=== PATIENT | male | born 1990 | race African-American/Black ===

== ENCOUNTER → 2019-01-18 | Outpatient (CLI) | payer BC ==
--- NOTE | 2019-01-18 14:03 | Diagnostic Imaging Report ---
PROCEDURE: MRI lumbar spine. TECHNIQUE: Multiplanar, multisequence MRI of the lumbar spine was performed without contrast. INDICATION: Low back pain. COMPARISON: Comparison is made with prior MRI of the lumbar spine from 09/09/2017. FINDINGS: Curvature and alignment of the lumbar spine is normal. Vertebral body heights are maintained. No acute compression fracture is seen. No geographic marrow lesion is detected. There is some disc desiccation and degenerative changes at L5-S1. Conus is unremarkable at the L1 level. T12-L1: Central canal and neural foramina are widely patent. L1-2: The central canal and neural foramina are widely patent. L2-3: There is some mild ligamentous thickening. Central canal remains widely patent. Neural foramina are widely patent. L3-4: There is some ligamentous thickening and facet changes. No central canal narrowing is seen. There may be very mild narrowing of the neural foramina bilaterally. L4-5: Broad-based annular bulging flattens the ventral thecal sac. Central canal remains patent. There is narrowing of the lateral recesses bilaterally. There may be very mild neural foraminal narrowing present as well bilaterally. L5-S1: There is some broad-based disc bulging indenting the ventral thecal sac. This is more prominent in the midline where there is a wide-based midline disc bulge. This indents the ventral thecal sac. No significant central canal narrowing is seen but there is significant bilateral lateral recess narrowing. There is also mild bilateral neural foraminal narrowing. Paraspinous tissues are unremarkable. IMPRESSION: Lower lumbar degenerative disc disease and facet arthropathy. There is a multilevel lateral recess and neural foraminal stenosis described level by level above. No central canal stenosis is seen. Disc bulge at the L5-S1 level is again noted slightly less pronounced when compared with prior MRI from 09/09/2017. Dictated by: Dictated on workstation # [id number]
== END ==
LOC: RAD 12:26
PROVIDERS: ATTEND Internal Medicine
DX: M48.07 Spinal stenosis, lumbosacral region (principal); M47.817 Spondylosis without myelopathy or radiculopathy, lumbosacral region; M51.27 Other intervertebral disc displacement, lumbosacral region; M46.86 Other specified inflammatory spondylopathies, lumbar region; M51.36 Other intervertebral disc degeneration, lumbar region
CPT/HCPCS: 72148